=== PATIENT | female | born 1935 | race Caucasian/White ===

== ENCOUNTER 2019-01-23 08:26 | Inpatient (IN) | payer MEDICARE, MEDICAID ==
[~2019-01-23] VITALS: Ht 152.4 cm; Wt 69.9 kg
--- NOTE | 2019-01-23 08:38 | NUR ---
PT TO ER BED 02 C/O LOWER BACK PAIN S/P GLF WHILE AMBULATING W/ A WALKER AT HOME. PT DENIES HEAD AND NECK PAIN. PLACED ON MONITOR. AWAITING MD COLLADO.
--- NOTE | 2019-01-23 08:48 | NUR ---
DR LYNN AT BEDSIDE FOR EVAL.
[2019-01-23] MEDS ORDERED: HYDROCODONE/APAP 10/325MG 1 EA TABLET PO ONE (09:00)
[2019-01-23] MEDS ORDERED: HYDROCODONE/APAP 10/325MG 1 EA TABLET ONE (09:13)
[2019-01-23] MEDS ORDERED: APIX2.5T PO (10:09)
[2019-01-23] MEDS ORDERED: DULO60CA45 PO (10:09)
[2019-01-23] MEDS ORDERED: METO100T14 PO (10:09)
[2019-01-23] MEDS ORDERED: TYL2T PO (10:09)
[2019-01-23] MEDS ORDERED: ATOR10TA PO (10:09)
[2019-01-23] MEDS ORDERED: ASPI-605 PO (10:09)
[2019-01-23] MEDS ORDERED: DILT240C88 PO (10:09)
[2019-01-23] MEDS ORDERED: LEVE500T9 PO (10:09)
[2019-01-23 10:52] LABS: BASOPHILS # (AUTO) 0.1 /CMM (0.0-0.2); BASOPHILS % (AUTO) 1.2 % (0.0-2.0); EOSINOPHILS % (AUTO) 3.5 % (0.0-6.0); HEMATOCRIT 40 % (33-45); HEMOGLOBIN 13.5 g/dL (11.5-14.8); LYMPHOCYTES # (AUTO) 2.2 /CMM (0.8-4.8); LYMPHOCYTES % (AUTO) 27.5 % (20.0-44.0); MEAN CORPUSCULAR HGB CONC 34 g/dl (31.0-36.0); MEAN CORPUSCULAR VOLUME 96 fL (82-100); MONOCYTES # (AUTO) 0.5 /CMM (0.1-1.30); NEUTROPHILS # (AUTO) 4.9 /CMM (1.8-8.9); NEUTROPHILS % (AUTO) 61.8 % (43.0-81.0); PLATELET COUNT (AUTO) 266 /CMM (150-450); RED BLOOD CELL COUNT(AUTO) 4.16 MIL/uL (4.0-5.2); WHITE BLOOD COUNT (AUTO) 7.9 K/uL (4.3-11.0)
[2019-01-23 11:00] LABS: CALCIUM, SERUM 8.4 mg/dL (8.5-10.1); CARBON DIOXIDE 24 mmol/L (21-32); CHLORIDE 108 mmol/L (98-107); CREATININE 0.9 mg/dL (0.6-1.3); GLUCOSE 103 mg/dL (74-106); POTASSIUM 4.1 mmol/L (3.5-5.1); SODIUM SERUM 143 mmol/L (136-145); UREA NITROGEN, BLOOD 17 mg/dL (7-18)
--- NOTE | 2019-01-23 11:55 | NUR ---
SPOKE TO HOUSE SUP FOR MS BED
[2019-01-23] MEDS ORDERED: ACETAMINOPHEN 325 MG TABLET PO PRN (12:00)
[2019-01-23] MEDS ORDERED: MAG HYDROX/AL HYDROX/SIMETH 30 ML UDC PO PRN (12:00)
[2019-01-23] MEDS ORDERED: HYDROCODONE/APAP 5/325MG 1 EACH TABLET PO PRN (12:00)
[2019-01-23] MEDS ORDERED: MAGNESIUM HYDROXIDE 30 ML UDC PO PRN (12:00)
[2019-01-23] MEDS ORDERED: ONDANSETRON HCL/PF 4 MG/2 ML VIAL IVP PRN (12:00)
--- NOTE | 2019-01-23 12:40 | NUR ---
MS BED 102 GIVEN. JIMBO IS RN
--- NOTE | 2019-01-23 13:15 | NUR ---
MS1/RN REPORT FROM ER RECEIVED REPORT FROM ER NURSE JEFF FOR PT TO BE ADMITTED FOR LUMBAR FRACTURE UNDER THE CARE OF Rahul HAGER AWAITING FOR PT'S ARRIVAL.
--- NOTE | 2019-01-23 13:15 | NUR ---
REPORT GIVEN TO JIMBO. AWAITING TRANSFER TO FLOOR .
--- NOTE | 2019-01-23 14:06 | NUR ---
TELE1/DEAF INTERPRETER TO TELE1 - ROOM 102 PT ARRIVED VIA GURNEY ACCOMPANIED BY ER NURSE FRANCISCO J AND PT'S (2) DAUGHTERS. PT TRANSFERRED TO HOSPITAL BED. PT A/O X 1, WITH SHORT TERM MEMORY, DENIES PAIN AT THIS TIME. VITALS SIGNS TAKEN, IN ROOM AIR SATURATING @ 95%, LUNG SOUNDS CLEAR. TELE BOX PLACED, V-PACING, HR 58, HAS LEFT CHEST WALL PACEMAKER. IV SITE FLUSHED PATENT WITH NO S/S OF INFECTION. ADMITTING PROTOCOLS BEING PROCESSED. PT IS COMFORTABLE, AWAITING FOR ADMITTING ORDERS. CL WITHIN REACHED, FALL PRECAUTION OBSERVED. ON GOING MONITORING.
[2019-01-23 14:15] VITALS: BP 130/63
[2019-01-23 16:00] VITALS: BP 129/57
[2019-01-23] MEDS: HYDROCODONE/APAP 10/325MG 1 EA TABLET PO PRN ×2 (16:03→23:15)
[2019-01-23] MEDS: APIXABAN 2.5 MG TABLET PO SCH (16:04)
[2019-01-23] MEDS: Z GUARD REMEDY 2 OZ OINT TP PRN (16:05)
--- NOTE | 2019-01-23 19:30 | NUR ---
TELE1/RN AM SHIFT END NOTES NO ACUTE CHANGE OF CONDITION NOTED SINCE PT WAS ADMITTED. LUMBAR BRACE WILL BE AVAILABLE TOMORROW. PT ENDORSED TO PM NURSE TO CONTINUE CARE. ALSO ENDORSED TO FOLLOW-UP ON COPY OF DOCUMENTS (DPOA AND POLST) CL WITHIN REACHED AND SAFETY MAINTAINED.
[2019-01-23 20:00] VITALS: BP 136/70
[2019-01-23] MEDS: MORPHINE SULFATE INJ 2 MG/ML DISP.SYRIN IV PRN (20:12)
[2019-01-23] MEDS: METOPROLOL TARTRATE 50 MG TABLET PO SCH (21:00)
[2019-01-23] MEDS: LEVETIRACETAM (250 MG) 250 MG TABLET PO SCH (21:24)
[2019-01-23] MEDS: ATORVASTATIN 10 MG TABLET PO SCH (21:24)
[2019-01-24] VITALS: BP 141/72
[2019-01-24] MEDS: MORPHINE SULFATE INJ 2 MG/ML DISP.SYRIN IV PRN (01:53)
[2019-01-24 04:00] VITALS: BP 127/59
[2019-01-24 06:53] LABS: BASOPHILS % (AUTO) 0.4 % (0.0-2.0); EOSINOPHILS % (AUTO) 4.1 % (0.0-6.0); HEMATOCRIT 39 % (33-45); HEMOGLOBIN 13.1 g/dL (11.5-14.8); LYMPHOCYTES # (AUTO) 1.7 /CMM (0.8-4.8); LYMPHOCYTES % (AUTO) 25.7 % (20.0-44.0); MEAN CORPUSCULAR HGB CONC 34 g/dl (31.0-36.0); MEAN CORPUSCULAR VOLUME 96 fL (82-100); MONOCYTES # (AUTO) 0.5 /CMM (0.1-1.30); MONOCYTES % (AUTO) 8.1 % (2.0-12.0); NEUTROPHILS % (AUTO) 61.7 % (43.0-81.0); PLATELET COUNT (AUTO) 240 /CMM (150-450); RED BLOOD CELL COUNT(AUTO) 4.04 MIL/uL (4.0-5.2); WHITE BLOOD COUNT (AUTO) 6.5 K/uL (4.3-11.0)
[2019-01-24 07:09] LABS: CALCIUM, SERUM 8.6 mg/dL (8.5-10.1); CARBON DIOXIDE 26 mmol/L (21-32); CHLORIDE 104 mmol/L (98-107); CREATININE 0.9 mg/dL (0.6-1.3); GLUCOSE 107 mg/dL (74-106); MAGNESIUM 2.1 mg/dL (1.8-2.4); PHOSPHORUS 3.9 mg/dL (2.5-4.9); POTASSIUM 4.1 mmol/L (3.5-5.1); SODIUM SERUM 139 mmol/L (136-145); UREA NITROGEN, BLOOD 19 mg/dL (7-18)
[2019-01-24 07:10] LABS: CHOLESTEROL 166 mg/dL (<200); HDL CHOLESTEROL 28 mg/dL (40-60); LDL 86 mg/dL (0-99); THYROID STIMULATING HORMONE 3.004 uIU/mL (0.358-3.74); TRIGLYCERIDES 318 mg/dL (30-150)
[2019-01-24 08:00] VITALS: BP 129/69
--- NOTE | 2019-01-24 08:38 | NUR ---
WOUND CARE CONSULT: PT PRESENTS WITH INCONTINENCE, DRY LESION TO RT FOREHEAD AND ITCHING RASH BEHIND BOTH EARS, PRESENT ON ADMISSION. DEFER TO MD FOR DRY LESION ON FOREHEAD. RECOMMENDATIONS MADE FOR SKIN CARE AND PROTECTION. DISCUSSED WITH NURSING STAFF. PT ABLE TO ASSIST WITH TURNING AND REPOSITIONING IN BED. WILL SEE PRN. CURRENT LEONEL SCORE IS 16. Addendum: 01/24/19 at 0840 by BELEN ESTRADA WNDNU Amended: Links added.
[2019-01-24] MEDS: ASPIRIN EC 81 MG TABLET.DR PO SCH (09:55)
[2019-01-24] MEDS: HYDROCODONE/APAP 10/325MG 1 EA TABLET PO PRN ×3 (09:55→21:06)
[2019-01-24] MEDS: DILTIAZEM HCL CD 240 MG PO SCH (09:56)
[2019-01-24] MEDS: APIXABAN 2.5 MG TABLET PO SCH ×2 (09:58→16:48)
[2019-01-24] MEDS: LEVETIRACETAM (250 MG) 250 MG TABLET PO SCH ×2 (09:58→21:05)
[2019-01-24] MEDS: METOPROLOL TARTRATE 50 MG TABLET PO SCH ×2 (09:59→21:05)
[2019-01-24] MEDS: CLOTRIMAZOLE 1% 15 GM TUBE TP SCH ×2 (14:12→16:47)
[2019-01-24 16:00] VITALS: BP 142/65
--- NOTE | 2019-01-24 19:15 | NUR ---
MS RN OPENING NOTES PATIENT A/O X1, WITH SHORT TERM MEMORY, DENIES PAIN AT THIS TIME. ON ROOM AIR, NO SOB NOTED. NO IV ACCESS, PER AM RN, PATIENT HARD STICK, NO IV MEDS EXCEPT PRN MEDS. WILL INSERT IV PER PROTOCOL. PATIENT IS COMFORTABLE. SAFETY MEASURES MAINTAINED, CALL LIGHT WITHIN REACH, FALL PRECAUTION OBSERVED. WILL CONT TO MONITOR PT.
[2019-01-24 20:00] VITALS: BP 133/63
[2019-01-24] MEDS: DULOXETINE HCL 30 MG CAPSULE.DR PO SCH (21:05)
[2019-01-24] MEDS: ATORVASTATIN 10 MG TABLET PO SCH (22:30)
--- NOTE | 2019-01-25 03:15 | NUR ---
MS RN NOTES PATIENT CONFUSED. REMOVED IV AND WANTING TO GET OUT OF BED. PATIENT ALSO VOMITED X1. PATIENT C/O NAUSEA. WILL ADMINISTER ZOFRAN PRN MEDICATION. WILL CONT TO MONITOR PT CLOSELY.
[2019-01-25] MEDS: HYDROCODONE/APAP 10/325MG 1 EA TABLET PO PRN (03:44)
[2019-01-25 04:00] VITALS: BP 147/65
[2019-01-25] MEDS: Z GUARD REMEDY 2 OZ OINT TP PRN (04:58)
--- NOTE | 2019-01-25 07:11 | NUR ---
MS RN CLOSING NOTES PATIENT SLEEPING IN BED, BUT EASY TO AROUSE. A/O X1, WITH SHORT TERM MEMORY, DENIES PAIN AT THIS TIME. ON ROOM AIR, NO SOB NOTED. IV SITE LEFT HAND 24G S/L, PATENT AND FLUSHING WELL. PATIENT IS COMFORTABLE. SAFETY MEASURES MAINTAINED, CALL LIGHT WITHIN REACH, FALL PRECAUTION OBSERVED, BED LOCKED AND IN LOWEST POSITION. NO ACUTE CHANGES THROUGHOUT SHIFT. ALL MD ORDERS ATTENDED. ALL NEEDS ANTICIPATED AND MET. ENDORSED TO AM RN FOR HUMA.
--- NOTE | 2019-01-25 07:30 | NUR ---
RN OPENING NOTES RECEIVED PATIENT IN BED SLEEPING COMFORTABLY. PATIENT IS ALERT AND ORIENTED X1. NO PAIN OR ACUTE DISTRESS AT THIS TIME. ON ROOM AIR, RESPIRATION EVEN AND UNLABORED. NO SOB NOTED. SKIN IS DRY WARM TO TOUCH. NOTED WITH IV ACCESS ON LEFT HAND. INTACT AND PATENT. NO S/S OF INFECTION OR INFILTRATION. NO IV MEDS EXCEPT PRN MEDS. ALL NEEDS ANTICIPATED. KEPT CLEAN AND COMFORTABLE. BED LOCKED AND IN LOWEST POSITION. SAFETY MAINTAINED. BED ALARM ARMED. FALL PRECAUTION OBSERVED. WILL CONT TO MONITOR PATIENT CLOSELY.
[2019-01-25 08:00] VITALS: BP 128/62
[2019-01-25] MEDS: DILTIAZEM HCL CD 240 MG PO SCH (09:00)
[2019-01-25] MEDS: METOPROLOL TARTRATE 50 MG TABLET PO SCH ×2 (09:00→21:53)
[2019-01-25] MEDS: ASPIRIN EC 81 MG TABLET.DR PO SCH (09:15)
[2019-01-25] MEDS: LEVETIRACETAM (250 MG) 250 MG TABLET PO SCH ×2 (09:15→21:53)
[2019-01-25] MEDS: APIXABAN 2.5 MG TABLET PO SCH ×2 (09:16→16:29)
[2019-01-25] MEDS: CLOTRIMAZOLE 1% 15 GM TUBE TP SCH ×2 (09:23→16:27)
--- NOTE | 2019-01-25 09:29 | NUR ---
RN NOTES MEDICATION METOPROLOL AND DILTIAZEM HELD DUE TO HEART RATE OF 50. PATIENT REMAINS IN STABLE CONDITION. WILL CONTINUE TO MONITOR PATIENT CLOSELY.
[2019-01-25 16:00] VITALS: BP 124/63
--- NOTE | 2019-01-25 17:10 | NUR ---
LINING STAMPER NOTES CALLED 3W TO GIVE REPORT. SPOKE TO ELZBIETA LYN IN 3W. GAVE REPORT REGARDING THE PATIENT. PATIENT WAS THEN TRANSFERRED 10 MINS LATER. PATIENT ACCOMPANIED BY PRIMARY RN AND 2 ANGLE SHEAR OPERATOR. PATIENT REMAINED STABLE DURING THE TRANSFER. PATIENT WAS PLACED IN ROOM 314-2. PATIENT WAS LEFT IN THE UNIT IN STABLE CONDITION. GAVE REPORT ONCE AGAIN. CHART WAS GIVEN TO PATY IN THE STATION.
--- NOTE | 2019-01-25 17:20 | NUR ---
M/S RN NOTES PATIENT RECEIVED ALERT AND ORIENTED X 1, 1 ON 1 SITTER. NO RESPIRATORY DISTRESS NOTED, NO C/O PAIN AT THIS TIME. PATIENT WITH LT HAND SL INTACT AND PATENT. SKIN WARM TO TOUCH. PATIENT'S NEEDS ATTENDED. BED ON LOWEST LOCKED POSITION, CALL LIGHT WITHIN REACH. WILL ENDORSE TO ONCOMING NURSE.
--- NOTE | 2019-01-25 19:25 | NUR ---
MS RN RECEIVE PT IN BED AWAKE A/O X 1, 1:1 SITTER AT BEDSIDE, NO S/S OF DISTRESS, RESPIRATIONS EVEN AND UNLABORED, SAFETY MEASURES IN PLACE. WILL CONTINUE TO MONITOR
[2019-01-25 20:00] VITALS: BP 150/70
[2019-01-25] MEDS: DULOXETINE HCL 30 MG CAPSULE.DR PO SCH (21:52)
[2019-01-25] MEDS: ATORVASTATIN 10 MG TABLET PO SCH (21:52)
--- NOTE | 2019-01-26 06:23 | NUR ---
MS RN ASLEEP AND EASILY AWAKEN, RESPIRATIONS EVEN AND UNLABORED. SLEPT WELL THROUGHOUT THE NIGHT. 1:1 SITTER AT BEDSIDE, KEPT CLEAN AND DRY AND COMFORTABLE. NEEDS ATTENDED AND ANTICIPATED, AM CARE RENDERED, REPOSITION EVERY 2 HOURS. OFFLOAD HEELS AND ELBOWS. NO C/O OF PAIN. SAFETY MEASURES AT ALL TIMES. ENDORSE TO THE NEXT SHIFT.
--- NOTE | 2019-01-26 07:15 | NUR ---
MS RN NOTES PATIENT IN BED ALERT ORIENTED X 2. NO ACUTE DISTRESS NOTED. BREATHING UNLABORED. NO SOB NOTED. IV ACCESS PATENT AND INTACT, NO REDNESS OR SWELLING NOTED. SAFETY MEASURES IN PLACE. CALL LIGHT WITHIN REACH. WILL CONTINUE TO MONITOR ACCORDINGLY.
[2019-01-26] MEDS: LEVETIRACETAM (250 MG) 250 MG TABLET PO SCH (08:43)
[2019-01-26] MEDS: ASPIRIN EC 81 MG TABLET.DR PO SCH (08:44)
[2019-01-26] MEDS: DILTIAZEM HCL CD 240 MG PO SCH (08:44)
[2019-01-26 08:45] VITALS: BP 149/77
[2019-01-26] MEDS: METOPROLOL TARTRATE 50 MG TABLET PO SCH (08:45)
--- NOTE | 2019-01-26 09:45 | NUR ---
MS ELZBIETA OTROSSANA FOLLOWED UP APIXABAN AND LOTRIMAZOLE CREAM FROM PHARMACY SPOKE WITH [facility] WILL BRING MEDICATIONS, WILL ADMINISTER ONCE AVAILABLE.
[2019-01-26] MEDS: APIXABAN 2.5 MG TABLET PO SCH (10:12)
[2019-01-26] MEDS: CLOTRIMAZOLE 1% 15 GM TUBE TP SCH (10:13)
--- NOTE | 2019-01-26 10:45 | NUR ---
MS RN NOTES SEEN AND EVALUATED BY DAIANA PRETTY WITH NEW ORDERS MADE, NOTED AND CARRIED OUT.
[2019-01-26] MEDS ORDERED: HYDR-3972 PO (10:46)
--- NOTE | 2019-01-26 13:40 | NUR ---
MS RN NOTES PATIENT DISCHARGE TO [facility] WITH STABLE VITAL SIGNS, NO ACUTE DISTRESS NOTED. BREATHING UNLABORED. DENIED PAIN AT THIS TIME. ALERT ORIENTED X 2. REPORT GIVEN TO DARLENE RUFF OF [facility]. IV ACCESS REMOVED, NO REDNESS OR SWELLING NOTED. ALL BELONGINGS ACCOUNTED FOR. NEEDS ATTENDED AND ANTICIPATED. DISCHARGED WITH LUMBAR BRACE. PICKED UP VIA AMBULANCE IN A GURNEY ACCOMPANIED BY 2 EMT PERSONNEL IN STABLE CONDITION.
== END 2019-01-26 13:30 | DRG 552 ==
LOC: ER 08:29 → MEDSG1 12:59 → TELE1 13:53 → MEDSG1 01-24 08:44 → MED 01-25 16:51
PROVIDERS: ADMIT Nurse Practitioner Acute Care; ATTEND Nurse Practitioner Acute Care
DX: S32.029A Unspecified fracture of second lumbar vertebra, initial encounter for closed fracture (principal); D68.59 Other primary thrombophilia; I50.22 Chronic systolic (congestive) heart failure; W18.30XA Fall on same level, unspecified, initial encounter; Y92.89 Other specified places as the place of occurrence of the external cause; M48.061 Spinal stenosis, lumbar region without neurogenic claudication; I48.91 Unspecified atrial fibrillation; I11.0 Hypertensive heart disease with heart failure; E78.5 Hyperlipidemia, unspecified; F03.90 Unspecified dementia, unspecified severity, without behavioral disturbance, psychotic disturbance, mood disturbance, and anxiety; M85.80 Other specified disorders of bone density and structure, unspecified site; Z95.0 Presence of cardiac pacemaker; I25.10 Atherosclerotic heart disease of native coronary artery without angina pectoris; R79.89 Other specified abnormal findings of blood chemistry; Z87.891 Personal history of nicotine dependence; Z79.01 Long term (current) use of anticoagulants; D32.9 Benign neoplasm of meninges, unspecified
CPT/HCPCS: 36415; 70450-TC; 71045-TC; 72128-TC; 72131-TC; 80048-TC; 80061-TC; 83735-TC; 84100-TC; 84443-TC; 84484-TC; 85025-TC; 85730-TC; 87081-TC; 93307-TC; 93880-TC; 97116-TC; 97530-TC; G0378; J2270; J2405

== ENCOUNTER 2020-07-09 21:38 | Inpatient (IN) | payer MEDICARE, OTHER ==
[~2020-07-09] VITALS: Ht 162.6 cm; Wt 66.7 kg
[~2020-07-09 21:38] MED LIST: APIX2.5T PO; ASPI-605 PO; ATOR10TA PO; DILT240C88 PO; DULO60CA45 PO; HYDR-3972 PO; LEVE500T9 PO; METO100T14 PO; TYL2T PO
--- NOTE | 2020-07-09 21:40 | NUR ---
TO ER BED 3 [place] FROM [facility] [facility] [place] C/O DIZZINESS, HIGHBLOOD PRESSURE X1 HR SUPERVISOR BOARDING. PT AAOX2, NO ACUTE DISTRESS NOTED, RESP EVEN AND UNLABORED. PLACE PT ON CARDIAC MONITORING, CONTINUOUS POX. PENDING ER MD COLLADO.
--- NOTE | 2020-07-09 21:59 | NUR ---
ER MD AT BEDSIDE TO EVAL PT WITH ORDERS RECEIVED. WILL CARRY OUT ORDERS.
--- NOTE | 2020-07-09 22:20 | NUR ---
LINE ESTABLISHED RAC 18G, BLOOD SENT TO LAB.
--- NOTE | 2020-07-09 22:20 | NUR ---
JEANIEID SWABBED, SENT TO LAB.
[2020-07-09 22:25] LABS: BASOPHILS # (AUTO) 0.1 /CMM (0.0-0.2); BASOPHILS % (AUTO) 0.9 % (0.0-2.0); EOSINOPHILS % (AUTO) 0.5 % (0.0-6.0); HEMATOCRIT 39 % (33-45); LYMPHOCYTES # (AUTO) 1.5 /CMM (0.8-4.8); LYMPHOCYTES % (AUTO) 15.7 % (20.0-44.0); MEAN CORPUSCULAR HGB CONC 33 g/dl (31.0-36.0); MEAN CORPUSCULAR VOLUME 92 fL (82-100); MONOCYTES # (AUTO) 0.9 /CMM (0.1-1.30); MONOCYTES % (AUTO) 9.1 % (2.0-12.0); NEUTROPHILS # (AUTO) 7.2 /CMM (1.8-8.9); NEUTROPHILS % (AUTO) 73.8 % (43.0-81.0); PLATELET COUNT (AUTO) 261 /CMM (150-450); RED BLOOD CELL COUNT(AUTO) 4.28 MIL/uL (4.0-5.2); WHITE BLOOD COUNT (AUTO) 9.8 K/uL (4.3-11.0)
[2020-07-09 22:41] LABS: CALCIUM, SERUM 9.1 mg/dL (8.5-10.1); CREATININE 1.1 mg/dL (0.6-1.3); POTASSIUM 3.4 mmol/L (3.5-5.1)
[2020-07-09 22:47] LABS: ALBUMIN 3.7 g/dL (3.4-5.0); BILIRUBIN,DIRECT 0.1 mg/dL (0.0-0.2); BILIRUBIN,TOTAL 0.4 mg/dL (0.2-1.0); TOTAL PROTEIN, SERUM 7.6 g/dL (6.4-8.2)
[2020-07-09] MEDS ORDERED: IOHEXOL-300 100 ML VIAL IV ONE (22:54)
[2020-07-09] MEDS ORDERED: CT SWABBABLE VALVE TRANS SET 1 EA INFUS.SET MC ONE (22:54)
[2020-07-09] MEDS ORDERED: IV NS 0.9% 250 ML IV ONE (22:54)
--- NOTE | 2020-07-09 22:56 | NUR ---
Craig wagoner in [facility] - 07/09/20 at 2334 by ANAND PT TRANSPORTED TO RADIOLOGY FOR CT HEAD.
--- NOTE | 2020-07-09 22:56 | NUR ---
PT TRANSPORTED TO RADIOLOGY FOR CT ABD/PELVIS WITH CONTRAST..
--- NOTE | 2020-07-09 23:13 | NUR ---
Craig wagoner in ED - 07/09/20 at 2334 by ANAND PT BACK FROM RADIOLOGY. PENDING CT HEAD RESULT.
--- NOTE | 2020-07-09 23:13 | NUR ---
PT BACK FROM RADIOLOGY. PENDING CT ABD/PELVIS RESULT.
[2020-07-10] MEDS ORDERED: ACETAMINOPHEN 650 MG/SUPP.RECT RC PRN (01:30)
[2020-07-10] MEDS ORDERED: ALBUTEROL SULFATE 8 GM HFA.AER.AD IH PRN (01:30)
[2020-07-10] MEDS ORDERED: ONDANSETRON HCL/PF 4 MG/2 ML VIAL IVP PRN (01:30)
[2020-07-10] MEDS ORDERED: HYDROCODONE/APAP 5/325MG TABLET PO PRN (02:00)
--- NOTE | 2020-07-10 02:05 | NUR ---
PT ASLEEP, NO ACUTE DISTRESS NOTED, RESP EVEN AND UNLABORED. CALL LIGHT WITHIN REACH. WILL CONTINUE TO MONITOR PT CLOSELY.
--- NOTE | 2020-07-10 05:01 | NUR ---
SECURITY SERVICES SPECIALIST AT BEDSIDE FOR BLOOD DRAW.
[2020-07-10 05:14] LABS: BASOPHILS # (AUTO) 0.1 /CMM (0.0-0.2); EOSINOPHILS % (AUTO) 0.1 % (0.0-6.0); HEMATOCRIT 37 % (33-45); HEMOGLOBIN 12.2 g/dL (11.5-14.8); LYMPHOCYTES # (AUTO) 1.6 /CMM (0.8-4.8); LYMPHOCYTES % (AUTO) 25.5 % (20.0-44.0); MEAN CORPUSCULAR HGB CONC 33 g/dl (31.0-36.0); MEAN CORPUSCULAR VOLUME 92 fL (82-100); MONOCYTES # (AUTO) 0.6 /CMM (0.1-1.30); MONOCYTES % (AUTO) 9.9 % (2.0-12.0); NEUTROPHILS # (AUTO) 4.1 /CMM (1.8-8.9); NEUTROPHILS % (AUTO) 63.5 % (43.0-81.0); PLATELET COUNT (AUTO) 231 /CMM (150-450); RED BLOOD CELL COUNT(AUTO) 4.02 MIL/uL (4.0-5.2); WHITE BLOOD COUNT (AUTO) 6.4 K/uL (4.3-11.0)
[2020-07-10 05:20] LABS: CALCIUM, SERUM 8.4 mg/dL (8.5-10.1); CREATININE 1.1 mg/dL (0.6-1.3); POTASSIUM 3.1 mmol/L (3.5-5.1)
[2020-07-10 05:26] LABS: ALBUMIN 3.4 g/dL (3.4-5.0); BILIRUBIN,TOTAL 0.4 mg/dL (0.2-1.0); PHOSPHORUS 2.9 mg/dL (2.5-4.9); TOTAL PROTEIN, SERUM 7.1 g/dL (6.4-8.2)
--- NOTE | 2020-07-10 05:40 | NUR ---
SL ON THE RAC PULLED OUT BY PT. RESTARTED ON THE L WRIST 20G.
[2020-07-10 05:42] LABS: THYROID STIMULATING HORMONE 1.065 uIU/mL (0.358-3.74)
[2020-07-10 05:43] LABS: C-REACTIVE PROTEIN 6.8 mg/dL (0.0-0.9)
[2020-07-10] MEDS ORDERED: CEFTRIAXONE 1GM BAG (ER ONLY) 50 ML IV ONE (05:43)
[2020-07-10] MEDS ORDERED: DEXAMETHASONE SOD PHOSPHATE 10 MG/ML VIAL ONE (05:44)
[2020-07-10] MEDS: DEXAMETHASONE SOD PHOSPHATE 6 MG in IV D5W 50 ML IV SCH ×2 (05:44→10:00)
[2020-07-10] MEDS: CEFTRIAXONE 1 G in IV D5W 50 ML IV SCH (05:46)
--- NOTE | 2020-07-10 06:47 | NUR ---
PT PLACED ON MONITOR AND PULSE OX. PROVIDED WITH MORE BLANKETS.
[2020-07-10] MEDS ORDERED: BISA10SU11 RC (08:11)
[2020-07-10] MEDS ORDERED: NA P133E RC (08:11)
[2020-07-10] MEDS ORDERED: CALC-883 PO (08:11)
[2020-07-10] MEDS ORDERED: ALEN70TA3 PO (08:11)
[2020-07-10] MEDS ORDERED: MAGN400O6 PO (08:11)
[2020-07-10] MEDS ORDERED: ACET325T53 PO (08:11)
[2020-07-10] MEDS ORDERED: DOCU-141 PO (08:11)
[2020-07-10] MEDS ORDERED: VIT1CAPS9 PO (08:11)
[2020-07-10] MEDS ORDERED: ACETAMINOPHEN 325 MG TABLET PO SCH (09:00)
[2020-07-10] MEDS ORDERED: ASPIRIN EC 81 MG TABLET.DR PO SCH (09:00)
[2020-07-10] MEDS ORDERED: DILTIAZEM HCL CD 240 MG PO SCH (09:00)
[2020-07-10] MEDS ORDERED: METOPROLOL TARTRATE 50 MG TABLET PO SCH (09:00)
[2020-07-10] MEDS ORDERED: LEVETIRACETAM (250 MG) 250 MG TABLET PO SCH (09:00)
[2020-07-10] MEDS ORDERED: APIXABAN 2.5 MG TABLET PO SCH (09:00)
--- NOTE | 2020-07-10 09:30 | NUR ---
PATIENT NOT ABLE TO TOLERATE SWALLOWING PO MEDS AT THIS TIME.
--- NOTE | 2020-07-10 10:00 | NUR ---
DECADRON 6MG IV IN D5W WILL NEXT BE GIVEN TOMORROW.
--- NOTE | 2020-07-10 10:46 | NUR ---
PATIENT NOTED O2 SATURATION AT 90%, PLACED PATIENT ON NON-REBREATHER MASK AT 15LPM O2.
--- NOTE | 2020-07-10 10:52 | NUR ---
PATIENT NOTED W AGONAL BREATHING, MADE ER MD AWARE. PLACED PATIENT ON NON-REBREATHER MASK AT 15LPM O2. WILL CONTINUE TO MONITOR.
--- NOTE | 2020-07-10 11:28 | NUR ---
[facility] CALLED AGAIN.
--- NOTE | 2020-07-10 11:46 | NUR ---
JENNIFFER WADSWORTH AT BEDSIDE.
--- NOTE | 2020-07-10 11:50 | NUR ---
ATTEMPTED TO CONTACT DAUGHTER, NO ANSWER, LEFT VM.
--- NOTE | 2020-07-10 11:54 | NUR ---
JENNIFFER WADSWORTH IN COMMUNICATION WITH PATIENT'S DAUGHTER THROUGH PHONE.
[2020-07-10] MEDS ORDERED: MORPHINE SULFATE INJ 2 MG/ML DISP.SYRIN ONE (11:57)
--- NOTE | 2020-07-10 12:29 | NUR ---
DAUGHTER GOWNED UP AND ASSISTED TO BEDSIDE
--- NOTE | 2020-07-10 12:58 | NUR ---
[facility] H[facility] : [id number] [address], [address] [facility] [id number] HOSPICE NURSE: BIMAL ARENAS RN PHONE: [phone] FAX: [phone]
--- NOTE | 2020-07-10 13:06 | NUR ---
DAUGHTER SPEAKING WITH HOSPICE NURSE.
[2020-07-10 13:51] LABS: ABG BASE EXCESS -10.8 mmol/L; ABG OXYGEN SATURATION 98.1 % (92.0-98.5); ABG PCO2 26.5 mmHg (35.0-45.0); ABG PH 7.326 (7.350-7.450); ABG PO2 141.9 mmHg (75.0-100.0); AaDO2 544.6 mmHg; COHb 0.3 % (0.5-1.5); MetHb 0.3 % (0.0-1.5); O2Hb 97.5 % (94.0-97.0); SITE, ABG Right Radial; VENT MODE, BG NRB 100
--- NOTE | 2020-07-10 15:20 | NUR ---
BED 103
--- NOTE | 2020-07-10 15:31 | NUR ---
REPORT GIVEN TO NOLAN RUFF OF MS UNIT
[2020-07-10 16:00] VITALS: BP 148/75
--- NOTE | 2020-07-10 16:00 | NUR ---
RN NOTES RECEIVED PT FROM ER. ON 10L ON NON REBREATHER MASK, AGONAL BREATHING. DNR/DNI STATUS. HOSPICE CARE. VS WNL. NOT IN DISTRESS. SAFETY MEASURES IN PLACE. CALL LIGHT WITHIN REACH. BED LOCKED AND AT LOWEST POSITION. BED ALARM ON. SIDE RAILS UP X2. WILL CONTINUE TO MONITOR.
[2020-07-10] MEDS ORDERED: MORPHINE SULFATE INJ 4 MG/ML DISP.SYRIN IV PRN (17:00)
[2020-07-10] MEDS ORDERED: MORPHINE SULFATE INJ 2 MG/ML DISP.SYRIN IV PRN (17:00)
[2020-07-10 20:00] VITALS: BP 128/74
--- NOTE | 2020-07-10 20:06 | NUR ---
RN CLOSING NOTES PT RESTING IN BED. ON 10L ON NON REBREATHER MASK, AGONAL BREATHING. DNR/DNI STATUS. HOSPICE CARE. NOT IN DISTRESS. SAFETY MEASURES IN PLACE. CALL LIGHT WITHIN REACH. BED LOCKED AND AT LOWEST POSITION. BED ALARM ON. SIDE RAILS UP X2. WILL ENDORSE TO NIGHT NURSE FOR HUMA.
[2020-07-10] MEDS ORDERED: DULOXETINE HCL 30 MG CAPSULE.DR PO SCH (22:00)
[2020-07-10] MEDS ORDERED: ATORVASTATIN 10 MG TABLET PO SCH (22:00)
[2020-07-11] VITALS: BP 126/69
[2020-07-11] MEDS: LORAZEPAM INJ 2 MG/ML VIAL IVP PRN ×2 (00:27→13:49)
[2020-07-11] MEDS ORDERED: AZITHROMYCIN 250 MG TABLET PO SCH (01:30)
[2020-07-11] MEDS ORDERED: CEFTRIAXONE 1 G VIAL ONE (01:39)
[2020-07-11] MEDS: CEFTRIAXONE 1 G in IV D5W 50 ML IV SCH (01:50)
[2020-07-11 04:00] VITALS: BP 168/64
--- NOTE | 2020-07-11 05:40 | NUR ---
RN notes In bed, resting comfortably with no distress noted. Breathing even and unlabored. On 10lpm O2 via non-rebreather mask, tolerating well. Noted with restlessness and facial grimace, ativan 1mg administered with help. Non verbal. On hospice care. Kept clean and dry. Will endorse to next shift for continuity of care
--- NOTE | 2020-07-11 07:03 | NUR ---
COTTON DISPATCHER OPENING NOTES RECEIVED PT RESTING COMFORTABLY IN BED AT THIS TIME. PT AOX1-2. PT ABLE RESPOND TO LIGHT STIMULUS. OPENS EYES. NO SOB NOTED, NO S/S OF ANY ACUTE DISTRESS NOTED. NO C/O PAIN AT THIS TIME. RESPIRATIONS ARE EVEN AND UNLABORED. PT NOTED ON 10LPM NON REBREATHER MASK. IV ACCESS NOTED IN RIGHT HAND G#20, INTACT, PATENT AND FLUSHING WELL. ASPIRATION AND SAFETY PRECAUTION IN PLACE AND MAINTAINED AT ALL TIMES. BED IN LOWEST LOCKED POSITION, HOB ELEVATED, SIDE RAILS UP X 2, CALL LIGHT AND TABLE WITHIN REACH. WILL CONTINUE TO MONITOR
[2020-07-11 08:00] VITALS: BP 144/96
[2020-07-11] MEDS: DEXAMETHASONE SOD PHOSPHATE 10 MG/ML VIAL IV SCH (10:34)
[2020-07-11 12:00] VITALS: BP 140/62
--- NOTE | 2020-07-11 13:50 | NUR ---
PT NOTED RESTLESS AND DEGOWNING. VS WNL. ATIVAN 1MG IVP Q4H FOR ANXIETY/RESTLESSNESS ADMINISTERED ANTICIPATED PER ORDER. WILL CONTINUE TO MONITO
[2020-07-11 18:03] VITALS: BP 140/60
--- NOTE | 2020-07-11 18:52 | NUR ---
BULK SEALER OPERATOR CLOSING NOTES PT AWAKE IN BED AT THIS TIME. PT REMAINED STABLE THROUGHOUT SHIFT. ALL CARE, NEED, MEDICATIONS AND TREATMENT ADMINISTERED ANTICIPATED PER ORDER. PT KEPT CLEAN AND DRY. ASPIRATION AND SAFETY PRECAUTION IN PLACE AND MAINTAINED AT ALL TIMES. BED IN LOWEST LOCKED POSITION, HOB ELEVATED, SIDE RAILS UP X 2, CALL LIGHT AND TABLE WITHIN REACH. WILL ENDORSE TO SUPERVISOR COREMAKER NURSE FOR HUMA
[2020-07-11 20:00] VITALS: BP 143/77
[2020-07-12] VITALS: BP 148/62
[2020-07-12] MEDS: CEFTRIAXONE 1 G in IV D5W 50 ML IV SCH (01:57)
--- NOTE | 2020-07-12 02:09 | NUR ---
tirated down to 10 liter face mask saturation 99 percent rr of 22 will cont to monitor hr 50
[2020-07-12 04:00] VITALS: BP 164/72
--- NOTE | 2020-07-12 04:00 | NUR ---
PT PLACED BACK ON NON REBREATHER PT USING MORE ACCESORY MUSCLE USE, APPEARS SOMEWHAT SHORT OF BREATH. SPO2 97% ON NON REBREATHER.
--- NOTE | 2020-07-12 07:30 | NUR ---
RN OPENING NOTE PT RESTING COMFORTABLY IN BED, PT AOX1, ON NONREBREATHER 15 LPM WITH NO SIGNS OF RESP DISTRESS OR SOB, BREATHING EVEN AND UNLABORED. PT RESPONSIVE TO VERBAL AND TACTILE STIMULI. PT DENIES PAIN AT THIS TIME AND NO SIGNS OF PAIN NOTED WELL. RIGHT HAND #20, INTACT, PATENT AND FLUSHING WELL, SL. ASPIRATION AND SAFETY PRECAUTION IN PLACE, BED LOCKED AND IN LOWEST POSITION, HOB ELEVATED, SIDE RAILS UP X 2, CALL LIGHT WITHIN REACH. WILL CONTINUE TO MONITOR
[2020-07-12 07:54] LABS: BASOPHILS % (AUTO) 0.1 % (0.0-2.0); HEMATOCRIT 38 % (33-45); HEMOGLOBIN 12.4 g/dL (11.5-14.8); LYMPHOCYTES # (AUTO) 0.8 /CMM (0.8-4.8); LYMPHOCYTES % (AUTO) 9.9 % (20.0-44.0); MEAN CORPUSCULAR HGB CONC 33 g/dl (31.0-36.0); MEAN CORPUSCULAR VOLUME 92 fL (82-100); MONOCYTES # (AUTO) 0.7 /CMM (0.1-1.30); MONOCYTES % (AUTO) 7.9 % (2.0-12.0); NEUTROPHILS % (AUTO) 82.1 % (43.0-81.0); PLATELET COUNT (AUTO) 254 /CMM (150-450); RED BLOOD CELL COUNT(AUTO) 4.12 MIL/uL (4.0-5.2); WHITE BLOOD COUNT (AUTO) 8.5 K/uL (4.3-11.0)
[2020-07-12 08:00] VITALS: BP 142/67
[2020-07-12 08:33] LABS: CALCIUM, SERUM 8.4 mg/dL (8.5-10.1); MAGNESIUM 2.5 mg/dL (1.8-2.4); PHOSPHORUS 2.8 mg/dL (2.5-4.9); POTASSIUM 3.5 mmol/L (3.5-5.1)
[2020-07-12] MEDS: DEXAMETHASONE SOD PHOSPHATE 10 MG/ML VIAL IV SCH (09:32)
--- NOTE | 2020-07-12 11:30 | NUR ---
RN NOTE PT RESTING IN BED COMFORTABLY. NO SIGNS OF RESP DISTRESS OR SOB. PT STATES PAIN /10, WILL ADMIN MORPHINE PER PROTOCOL
--- NOTE | 2020-07-12 14:17 | NUR ---
RN NOTE MORPHINE REASSESSMENT PT GIVEN MORPHINE 2MG FOR PAIN 04/10. REASSESSMENT: PT NO SIGNS OF RESP DISTRESS OR SOB, BREATHING EVEN AND UNLABORED. PAIN 11/08
--- NOTE | 2020-07-12 14:20 | NUR ---
PATIENT IV OUT,MULTIPLE IV TRIED POOR VEIN AWAITS MIDLINE PER MD.
--- NOTE | 2020-07-12 15:30 | NUR ---
RN NOTE MIDLINE PLACED IN KIRBY, PATENT AND SL Addendum: 07/12/20 at 2039 by ANDREIA LUCERO RN COVERED IN KERLIX AND ARM SLEEVE TO PREVENT PT FROM PULLING OUT LINE
[2020-07-12 16:00] VITALS: BP 114/62
--- NOTE | 2020-07-12 19:00 | NUR ---
RN CLOSING NOTE PT RESTING IN BED COMFORTABLY ON NONREBREATHER 15LPM, NO SIGNS OF RESP DISTRESS OR SOB NOTED. PT STATES PAIN IS MUCH BETTER AND SHOWS NO SIGNS OF PAIN. SAFETY PRECAUTIONS IN PLACE, BED LOCKED AND IN LOWEST POSITION, SR UP x2, CALL LIGHT WITHIN REACH, ASPIRATION PRECAUTIONS IN PLACE. WILL ENDORSE HUMA TO ONCOMING NURSE
--- NOTE | 2020-07-12 19:20 | NUR ---
RN NOTES RECEIVED PT IN BED RESTING COMFORTABLY; A/OX1, IN NO SIGN OF RESPIRATORY DISTRESS. ON 15L O2 VIA NRB; TOLERATING WELL. IV SITE/ACCESS; PATENT AND FLUSHING WELL.SAFETY MEASURES HAVE BEEN PROVIDED AND IMPLEMENTED. PATIENT BED ALARM IS ON. HEAD OF BED ELEVATED. BED IS LOCKED, IN LOWEST POSITION AND SIDE RAILS UP. CALL LIGHT WITHIN REACH OF THE PATIENT. APPLICABLE ISOLATION PRECAUTIONS IN PLACE. WILL CONTINUE TO MONITOR AND REASSESS FOR ANY CHANGES AND WILL CARRY OUT ANY ONGOING AND ACTIVE MD ORDER.
[2020-07-12 20:00] VITALS: BP 150/64
--- NOTE | 2020-07-12 23:10 | NUR ---
RN NOTES RECEIVED CALL FROM HOSPICE, S/W ALTAGRACIA, PROVIDED STATUS UPDATE, V/S AND ONGOING O2 MANAGEMENT AND ORIENTATION. ADVISED HER THAT PRIMARY RN WILL KEEP HER UPDATED FOR ANY SIGNIFICANT CHANGES TO PATIENT. SHE ACKNOWLEDGED. REJOINER MADE AWARE. WILL CONTINUE TO ASSESS AND MONITOR THROUGHOUT THE SHIFT.
[2020-07-13] MEDS: CEFTRIAXONE 1 G in IV D5W 50 ML IV SCH (03:16)
[2020-07-13 04:00] VITALS: BP 157/74
--- NOTE | 2020-07-13 04:00 | NUR ---
RN NOTES ENDORSED REPORT TO MANISHASOSA FOR HUMA. CANOE INSPECTOR MADE AWARE.
--- NOTE | 2020-07-13 06:50 | NUR ---
RN notes Received patient comfortably resting in bed. No distress noted. Vital signs WNL. No significant change of condition. Will endorse to next shift for continuity of care.
[2020-07-13 06:53] LABS: HEMATOCRIT 41 % (33-45); HEMOGLOBIN 13.2 g/dL (11.5-14.8); LYMPHOCYTES # (AUTO) 1.1 /CMM (0.8-4.8); LYMPHOCYTES % (AUTO) 7.9 % (20.0-44.0); MEAN CORPUSCULAR HGB CONC 32 g/dl (31.0-36.0); MEAN CORPUSCULAR VOLUME 92 fL (82-100); MONOCYTES # (AUTO) 1.4 /CMM (0.1-1.30); NEUTROPHILS # (AUTO) 11.6 /CMM (1.8-8.9); NEUTROPHILS % (AUTO) 82.1 % (43.0-81.0); PLATELET COUNT (AUTO) 359 /CMM (150-450); RED BLOOD CELL COUNT(AUTO) 4.46 MIL/uL (4.0-5.2); WHITE BLOOD COUNT (AUTO) 14.1 K/uL (4.3-11.0)
--- NOTE | 2020-07-13 07:05 | NUR ---
RN OPENING NOTE Patient in bed asleep appears comfortable. No signs of distress on room air. Will cont to monitor. Side rails up x4. Bed locked and lowest position. Will cont to monitor.
[2020-07-13 07:41] LABS: CALCIUM, SERUM 8.6 mg/dL (8.5-10.1); CARBON DIOXIDE 24 mmol/L (21-32); CHLORIDE 106 mmol/L (98-107); CREATININE 1.4 mg/dL (0.6-1.3); GLUCOSE 152 mg/dL (74-106); MAGNESIUM 2.7 mg/dL (1.8-2.4); PHOSPHORUS 3.6 mg/dL (2.5-4.9); POTASSIUM 3.7 mmol/L (3.5-5.1); SODIUM SERUM 147 mmol/L (136-145); UREA NITROGEN, BLOOD 37 mg/dL (7-18)
[2020-07-13 08:00] VITALS: BP 146/75
[2020-07-13] MEDS: DEXAMETHASONE SOD PHOSPHATE 10 MG/ML VIAL IV SCH (10:20)
--- NOTE | 2020-07-13 10:30 | NUR ---
PATIENT PULLED OUT MIDLINE. ALL IV MEDS CHANGED TO PO.
[2020-07-13] MEDS ORDERED: ONDANSETRON HCL 4 MG/5 ML SOLUTION PO PRN (11:00)
[2020-07-13] MEDS: AZITHROMYCIN 250 MG TABLET PO SCH (11:30)
--- NOTE | 2020-07-13 11:49 | NUR ---
PATIENT PULL MIDLINE AND REFUSED IV REINSERTION,DISCUSSED WITH DR. SONAL STARK CHANGE TO PO,PRIMARY RN AWARE.
[2020-07-13 12:00] VITALS: BP 165/69
[2020-07-13 16:00] VITALS: BP 134/98
--- NOTE | 2020-07-13 16:10 | NUR ---
PATIENT FOUND ON THE FLOOR. AWAKE BUT CONFUSED. MD AWARE ORDERED MORPHINE SUBLINGUAL.
[2020-07-13] MEDS: MORPHINE SULFATE SOLN CONCENTRATED 20 MG/ML SL PRN (16:24)
[2020-07-13] MEDS: LORAZEPAM 1 MG TABLET PO PRN (18:21)
--- NOTE | 2020-07-13 19:25 | NUR ---
RN CLOSING NOTE Patient in bed asleep appears calm and relaxed. No signs of distress, report given to overnight caregiver nurse for alec.
--- NOTE | 2020-07-13 19:35 | NUR ---
1935 PATIENT AWAKE IN BED, RESTLESS AND REMOVING HER OXYGEN MASK. NO SIGNS OF RESPIRATORY DISTRESS NOTED. REDIRECTED WITH NO HELP. NO C/O PAIN WHEN ASKED. ABLE TO TURN TO SIDE INDEPENDENTLY. BED PLACED IN LOWEST POSITION WITH RAILS UP FOR SAFETY. BED ALARM ON. PLACED CALL LIGHT WITHIN REACH AND INSTRUCTED PATIENT TO USE FOR ASSISTANCE.
[2020-07-13 20:00] VITALS: BP 109/53
--- NOTE | 2020-07-14 | NUR ---
SLEEPING ON HER SIDE. CONT TO REMOVE HER OXYGEN MASK DESPITE CONSTANT REMINDER TO KEEP IT ON. NO SIGNS OF RESPIRATORY DISTRESS NOTED. NO SIGNS OF PAIN NOTED. KEPT CLEAN AND COMFORTABLE. SAFETY MEASURES OBSERVED AT ALL TIMES. NEEDS ATTENDED.
[2020-07-14 01:56] VITALS: BP 134/98
--- NOTE | 2020-07-14 04:30 | NUR ---
0430 NO ACUTE CHANGES. NO SIGNS OF RESPIRATORY DISTRESS NOTED. KEPT COMFORTABLE. SAFETY MEASURES OBSERVED.
--- NOTE | 2020-07-14 06:30 | NUR ---
0630 no acute changes, no signs of respiratory distress noted, no agitation, kept clean and dry. needs attended.
--- NOTE | 2020-07-14 07:15 | NUR ---
PT ASLEEP IN BED. RESPIRATIONS EVEN UNLABORED. SINUS TO SB 50-60S, NO IV PRESENT. NO SIGNS OF RESPIRATORY DISTRESS OR PAIN. NO NAUSEA. NO ACUTE CHANGE. ALL HOSPITAL POLICY SAFETY PRECAUTIONS IMPLEMENTED. HOB ELEVATED. RAILS X2 UP, BED LOCKED, LOW, CALL LIGHT IN REACH AND BED ALARM ON.
[2020-07-14 08:00] VITALS: BP 157/88
[2020-07-14] MEDS: DEXAMETHASONE 4 MG TABLET PO SCH (09:37)
[2020-07-14] MEDS: AZITHROMYCIN 250 MG TABLET PO SCH (11:36)
[2020-07-14 11:53] LABS: BASOPHILS % (AUTO) 0.1 % (0.0-2.0); HEMATOCRIT 40 % (33-45); HEMOGLOBIN 12.8 g/dL (11.5-14.8); LYMPHOCYTES % (AUTO) 8.6 % (20.0-44.0); MEAN CORPUSCULAR HGB CONC 32 g/dl (31.0-36.0); MEAN CORPUSCULAR VOLUME 94 fL (82-100); MONOCYTES # (AUTO) 0.9 /CMM (0.1-1.30); MONOCYTES % (AUTO) 8.3 % (2.0-12.0); NEUTROPHILS # (AUTO) 9.3 /CMM (1.8-8.9); PLATELET COUNT (AUTO) 284 /CMM (150-450); RED BLOOD CELL COUNT(AUTO) 4.31 MIL/uL (4.0-5.2); WHITE BLOOD COUNT (AUTO) 11.2 K/uL (4.3-11.0)
[2020-07-14 12:21] LABS: CALCIUM, SERUM 8.7 mg/dL (8.5-10.1); CARBON DIOXIDE 21 mmol/L (21-32); CHLORIDE 106 mmol/L (98-107); CREATININE 1.4 mg/dL (0.6-1.3); GLUCOSE 178 mg/dL (74-106); MAGNESIUM 2.9 mg/dL (1.8-2.4); PHOSPHORUS 3.6 mg/dL (2.5-4.9); POTASSIUM 3.5 mmol/L (3.5-5.1); SODIUM SERUM 145 mmol/L (136-145); UREA NITROGEN, BLOOD 55 mg/dL (7-18)
[2020-07-14 16:44] VITALS: BP 108/75
--- NOTE | 2020-07-14 19:05 | NUR ---
PT ASLEEP IN BED W NO ACUTE CHANGES THROUGHOUT SHIFT. RESPIRATIONS EVEN UNLABORED. SINUS TO SB 50-60S, NO IV PRESENT. NO SIGNS OF RESPIRATORY DISTRESS OR PAIN. NO NAUSEA. NO ACUTE CHANGE. ALL HOSPITAL POLICY SAFETY PRECAUTIONS IMPLEMENTED. HOB ELEVATED. RAILS X2 UP, BED LOCKED, LOW, CALL LIGHT IN REACH AND BED ALARM ON. ENDORSED TO PM RN. TURNED Q2H AND ELEVATED EXTREMITIES W PILLOW.
--- NOTE | 2020-07-14 19:42 | NUR ---
RN OPENING NOTE PATIENT IN BED ALERT NONVERBAL CONFUSED ON NONBREATHER MASK DNR/DNI HOSPICE PATIENT BREATHING LABORED ANXIOUS MOVING ON BED NO IV ACCESS,BED ALARM IS ON BED IN LOW POSITON AND LOCKED INCONTIENT TO BOWEL/BLADDER CONTINUE TO MONITOR.
--- NOTE | 2020-07-15 02:00 | NUR ---
RN NOTE PATIENT NONCOMPLIANCE WITH NON REBREATHER MASK,EDUCATED HER MANY TIMES SHE STILL NON COMPLIANCE CONTINUE TO MONITOR
[2020-07-15 04:00] VITALS: BP 156/84
[2020-07-15] MEDS: MORPHINE SULFATE SOLN CONCENTRATED 20 MG/ML SL PRN ×2 (06:59→11:34)
[2020-07-15] MEDS: LORAZEPAM 1 MG TABLET PO PRN ×2 (07:28→12:35)
--- NOTE | 2020-07-15 07:30 | NUR ---
RN NOTES PT IN BED, AWAKE, VERBALLY RESPONSIVE, CONFUSED, EPISODES OF REMOVING NON REBREATHER MASK, UNABLE TO KEEP STILL, FENDER MECHANIC NURSE ADMINISTERED MEDS, REPOSITIONED PT, KEPT WARM AND COMFORTABLE, WILL CONTINUE TO MONITOR.
--- NOTE | 2020-07-15 07:43 | NUR ---
RN CLOSING NOTE PATIENT REMAINS ALERT CONFUSED ON NON REBREATHER MASK 15L OXYGEN NONCOMPLIANCE WITH NON REBREATHER MASK KEPT CLEAN AND DRY ALL THE TIME,KEPT COMFORTABLE ENDORSE NEXT COMING SHIFT FOR CONTINUATION OF CARE.
[2020-07-15 08:00] VITALS: BP 111/61
[2020-07-15] MEDS: DEXAMETHASONE 4 MG TABLET PO SCH (08:48)
[2020-07-15] MEDS ORDERED: MORPHINE SULFATE PF DRIP 250 MG in IV D5W 240 ML IV PRN (10:30)
--- NOTE | 2020-07-15 10:33 | NUR ---
RN NOTES PT SEEN BY DR. PRUITT, ORDERED MORPHINE DRIP AND MIDLINE INSERTION.
[2020-07-15] MEDS: AZITHROMYCIN 250 MG TABLET PO SCH (10:58)
[2020-07-15 16:00] VITALS: BP 155/69
[2020-07-15] MEDS ORDERED: KEY,NONCONTROL,TO KEEP IN PYXI 1 EA MC ONE (17:45)
--- NOTE | 2020-07-15 18:51 | NUR ---
RN CLOSING NOTE PATIENT IS IN BED RESTING COMFORTABLY. PATIENT IS IN NO ACUTE DISTRESS. PATIENT IS ON NON REBREATHER MASK ON 15L OXYGEN. PATIENT KEPT CLEAN, DRY AND COMFORTABLE THROUGHOUT THE SHIFT. PATIENT NEEDS WERE ADDRESSED. PATIENT BED IS LOCKED AND IN LOWEST POSITION. CALL LIGHT WITHIN REACH. ENDORSE TO THE ECOMMERCE MERCHANDISING MANAGER NURSE FOR HUMA.
[2020-07-15 20:00] VITALS: BP 145/59
--- NOTE | 2020-07-15 20:00 | NUR ---
hospice music therapist note Received in bed, sleeping. Breathing even and unlabored with no sob or acute distress noted on 15L of O2 via NBR. 02 saturation 90%.No signs of pain or discomfort.SMILEY midline patent and intact. On continuos morphine drip. All needs rendered. Call light within reach. Bed in lowest position. Will continue to monitor.
--- NOTE | 2020-07-16 04:00 | NUR ---
cargo vessel stewardess note Patient in bed. Sleeping but easily arousable. Breathing even and unlabored with no sob or acute distress noted on 15L of o2 via NBR. mild wheezing on breath sounds. O2 saturation 86%. No signs of pain or discomfort. Appears comfortable in bed. Finger tips and toes are bluish is color. Pt covered with warm blanket. Kept comfortable in bed. On continuous morphine drip. SMILEY midline patent and intact. All needs rendered. Bed in lowest position. Call light within reach.
--- NOTE | 2020-07-16 06:27 | NUR ---
rn intern closing note Patient in bed. Sleeping but easily arousable. Breathing even and unlabored with no sob or acute distress noted on 15L of o2 via NBR. O2 saturation 87%. No signs of pain or discomfort, appears comfortable. On continuous morphine drip. SMILEY midline patent and intact. All needs rendered. Pt kept clean and dry. Bed in lowest position. Call light within reach. Will endorse to am nurse for continuity of care.
[2020-07-16] MEDS: AZITHROMYCIN 250 MG TABLET PO SCH (08:52)
[2020-07-16] MEDS: DEXAMETHASONE 4 MG TABLET PO SCH (08:52)
--- NOTE | 2020-07-16 08:52 | NUR ---
patient lethargic but arousable, on morphine drip,comfortable ,refusing po meds md aware.
[2020-07-16 08:54] VITALS: BP 166/75
[2020-07-16] MEDS ORDERED: LORAZEPAM INJ 2 MG/ML VIAL IV PRN (09:30)
[2020-07-16] MEDS ORDERED: KEY,NONCONTROL,TO KEEP IN PYXI 1 EA MC ONE (09:59)
--- NOTE | 2020-07-16 11:35 | NUR ---
pt restless prn ativan given as ordered.
[2020-07-16] MEDS: MORPHINE SULFATE PF DRIP 250 MG in IV D5W 240 ML IV PRN (17:36)
--- NOTE | 2020-07-16 19:27 | NUR ---
Report given to intelligence operations RN
[2020-07-16 20:00] VITALS: BP 137/57
--- NOTE | 2020-07-16 20:00 | NUR ---
newspaper clipper Opening note Received pt in bed, Sleeping and appears to be comfortable in bed. Breathing even and unlabored in 15L via NRB. 02 saturation 98%. SMILEY midline patent and intact. On continuos morphine drip.All needs rendered. Call light within reach. Bed in lowest position.Repositioned. Will continue to monitor
--- NOTE | 2020-07-17 06:44 | NUR ---
manager retail sales Closing note Patient in bed, asleep. Appears comfortable in bed. No signs of pain or discomfort. breathing unlabored. respiration 11bpm. Right upper arm midline patent and intact. Still on continuous morphine drip. No BM or urine output noted the whole shift. Skin is cool to touch. Fingers and toes are bluish in color. Repositioned q2. All needs rendered. Kept clean and dry. Will endorse to am nurse for continuity of care.
[2020-07-17 08:00] VITALS: BP 125/40
--- NOTE | 2020-07-17 08:00 | NUR ---
TELE/RN OPENING NOTES RECEIVED PATIENT ON BED ALERT AND ORIENTED X0. PATIENT IN NO APPARENT RESPIRATORY DISTRESS NOTED. NO SIGN AND SYMPTOM OF PAIN AT THIS TIME. WILL CONTINUE TO MONITOR.
[2020-07-17] MEDS: DEXAMETHASONE 4 MG TABLET PO SCH (09:00)
--- NOTE | 2020-07-17 09:00 | NUR ---
TELE/RN NOTES PATIENT CANNOT TOLERATE FOOD INTAKE PATIENT ORAL MEDICATION WAS WITH HELD MD IS AWARE.
[2020-07-17] MEDS: AZITHROMYCIN 250 MG TABLET PO SCH (11:00)
[2020-07-17] MEDS ORDERED: KEY,NONCONTROL,TO KEEP IN PYXI 1 EA MC ONE (11:38)
[2020-07-17] MEDS: MORPHINE SULFATE PF DRIP 250 MG in IV D5W 240 ML IV PRN (11:49)
--- NOTE | 2020-07-17 15:25 | NUR ---
TELE/RN NOTES PATIENT IS FEBRILE TEMP 103, ACETAMINOPHEN 650 MG SUPPOSITORY WAS GIVEN. WILL CONTINUE TO MONITOR.
--- NOTE | 2020-07-17 19:13 | NUR ---
HOSPICE/RN CLOSING NOTES PATIENT ON BED, ASLEEP. APPEARS COMFORTABLE IN BED . NO SIGN AND SYMPTOM OF PAIN NOTED AT THIS TIME. PATIENT IN NO APPARENT RESPIRATORY DISTRESS NOTED. RIGHT UPPER MIDLINE WITH CONTINUOS MORPHINE DRIP. NO BM AND SMALL AMOUNT OF URINE. SKIN COOL TO TOUCH, FINGERS AND TOES ARE BLUISH IN COLOR. KEPT PATIENT CLEAN AND DRY THE WHOLE TIME. LATEST TEMP 103.4. 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
--- NOTE | 2020-07-17 19:30 | NUR ---
RN OPENING NOTES RECEIVED PATIENT IN BED. ON NON REBREATHER 15 L. ON MORPHINE DRIP OF 2MG/HR. SHALLOW BREATHING NOTED, RESPIRATIONS AT 8. NO SIGNS OF PAIN. WARM TO TOUCH. KEPT COMFORTABLE IN BED. WILL CONTINUE TO MONITOR.
--- NOTE | 2020-07-17 20:19 | NUR ---
2019 NOTED PATIENT UNRESPONSIVE, UNABLE TO APPRECIATE PULSES WHEN ASSESSED. SKIN PALE AND COOL TO TOUCH. NO SIGNS OF RESPIRATION NOTED. NO HEART TONE NOTED ON AUSCULTATION. PRONOUNCED AT THIS TIME.
--- NOTE | 2020-07-17 20:40 | NUR ---
SPOKE TO PTS DAUGHTER, KANDY. NOTIFIED ABOUT THE .
--- NOTE | 2020-07-17 20:41 | NUR ---
CALLED [facility]. SPOKE TO EVIN, NOTIFIED ABOUT PTS .
--- NOTE | 2020-07-17 20:47 | NUR ---
[facility] CALLED TO REPORT , SPOKE WITH CHAU BLEVINS, CASE#[id number] OBTAINED.
--- NOTE | 2020-07-17 21:00 | NUR ---
[address] DR[address] [place] BENSON NOTIFIED OF PATIENT'S .
--- NOTE | 2020-07-17 21:17 | NUR ---
RECEIVED A CALL FROM SALLY FROM [facility], SAYING SHE ALREADY CALLED THE [employer] [employer] AND [employer]IT OPERATOR PT, DID NOT GIVE ETA FOR MORTUARY.
--- NOTE | 2020-07-18 00:15 | NUR ---
CALLED [facility] TO FOLLOW UP ETA, SPOKE TO CHRISTY. UNABLE TO GIVE ETA AND WILL JUST CALL BACK.
== END 2020-07-18 01:00 | disposition hospice, inpatient (51) | DRG 177 ==
LOC: ER 21:39 → OBSER 07-10 05:14 → TELE1 07-10 15:33 → HOSPICE1 07-10 16:40
PROVIDERS: ADMIT Nurse Practitioner Acute Care; ATTEND Internal Medicine
PROC: 02HV33Z Insertion of Infusion Device into Superior Vena Cava, Percutaneous Approach (ICD-10-PCS; principal; 2020-07-12)
PROC: B548ZZA Ultrasonography of Superior Vena Cava, Guidance (ICD-10-PCS; 2020-07-12)
PROC: 05HY33Z Insertion of Infusion Device into Upper Vein, Percutaneous Approach (ICD-10-PCS; 2020-07-16)
DX: U07.1 COVID-19 (principal); J12.89 Other viral pneumonia; I50.23 Acute on chronic systolic (congestive) heart failure; J96.01 Acute respiratory failure with hypoxia; D68.59 Other primary thrombophilia; F03.90 Unspecified dementia, unspecified severity, without behavioral disturbance, psychotic disturbance, mood disturbance, and anxiety; E78.5 Hyperlipidemia, unspecified; Z79.82 Long term (current) use of aspirin; I11.0 Hypertensive heart disease with heart failure; Z79.01 Long term (current) use of anticoagulants; Z51.5 Encounter for palliative care; Z79.899 Other long term (current) drug therapy; Z90.710 Acquired absence of both cervix and uterus; Z90.49 Acquired absence of other specified parts of digestive tract; Z87.891 Personal history of nicotine dependence; Z80.3 Family history of malignant neoplasm of breast; Z98.890 Other specified postprocedural states; Z91.041 Radiographic dye allergy status; I48.91 Unspecified atrial fibrillation; F41.9 Anxiety disorder, unspecified; E27.8 Other specified disorders of adrenal gland; E87.6 Hypokalemia; Z87.81 Personal history of (healed) traumatic fracture
CPT/HCPCS: 36415; 36600; 71045-TC; 80048-TC; 80053-TC; 80061-TC; 80076-TC; 80177; 82550-TC; 82728-TC; 82803-TC; 83615-TC; 83690-TC; 83735-TC; 84100-TC; 84443-TC; 84484-TC; 85025-TC; 85378-TC; 86140-TC; 87081-TC; C9803; G0378; J0696; J1100; J2060; J2270; J2274; J2405; J7050; J7060; J8540; Q0162; Q9967